=== PATIENT | male | born 1955 | race Two or more races ===

== ENCOUNTER 2018-11-27 08:36 | Emergency (ER) | payer MEDICAID ==
[~2018-11-27] VITALS: Ht 180.3 cm; Wt 71.8 kg
[2018-11-27] MEDS ORDERED: BENZONATATE 100 MG CAPSULE ONE (09:20)
[2018-11-27] MEDS ORDERED: IBUPROFEN 200 MG TABLET ONE (09:20)
--- NOTE | 2018-11-27 09:29 | NUR ---
PT BACK FROM XRAY. PT MEDICATED FOR PAIN AND COUGH.
[2018-11-27] MEDS ORDERED: BENZONATATE 100 MG CAPSULE PO ONE (09:30)
[2018-11-27] MEDS ORDERED: IBUPROFEN 200 MG TABLET PO ONE (09:30)
[2018-11-27] MEDS ORDERED: CEFTRIAXONE PMX 1GM/50ML 50 ML IVPB ONE (11:00)
[2018-11-27] MEDS ORDERED: AZITHROMYCIN 500 MG in SODIUM CHLORIDE 0.9% 250 ML IV ONE (11:00)
[2018-11-27] MEDS ORDERED: SODIUM CHLORIDE FLUSH 10ML SYR IVF ONE (11:00)
[2018-11-27] MEDS ORDERED: CEFTRIAXONE PMX 1GM/50ML 50 ML ONE (11:21)
--- NOTE | 2018-11-27 11:26 | NUR ---
PIV STARTED AND BLOOD DRAWN. BLOOD CULTURES DRAWN X2. IV ANTIBIOTICS STARTED AFTER BLOOD CULTURES WERE DRAWN.
[2018-11-27 11:39] LABS: BASOPHILS # (AUTO) 0.01 x10^3/uL (0-0.1); BASOPHILS % (AUTO) 0 % (0-1); EOSINOPHILS % (AUTO) 0 % (1-7); LYMPHOCYTES # (AUTO) 1.38 x10^3/uL (1-3.4); LYMPHOCYTES % (AUTO) 12 % (22-44); MD NO; MEAN CORPUSCULAR HEMOGLOBIN 30.8 pg (27.5-34.5); MEAN CORPUSCULAR HGB CONC 33.5 g/dL (33.2-36.2); MEAN CORPUSCULAR VOLUME 91.7 fL (81-97); MEAN PLATELET VOLUME 7.1 fL (7.4-10.4); MONOCYTES # (AUTO) 0.91 x10^3/uL (0.2-0.8); MONOCYTES % (AUTO) 8 % (2-9); NEUTROPHILS # (AUTO) 9.21 x10^3/uL (1.8-6.8); NEUTROPHILS % (AUTO) 80 % (42-75); PLATELET COUNT 401 x10^3/uL (130-400); RED BLOOD COUNT 3.71 x10^6/uL (4.38-5.82); RED CELL DISTRIBUTION WIDTH 13.8 % (9.4-14.8)
[2018-11-27 11:44] LABS: ANION GAP 7 mmol/L (5-15); CALCIUM 8.2 mg/dL (8.5-10.1); CHLORIDE 101 mmol/L (98-107)
[2018-11-27 11:48] LABS: ALANINE AMINOTRANSFERASE 27 U/L (12-78); ALKALINE PHOSPHATASE 98 U/L (45-117); BILIRUBIN,TOTAL 0.5 mg/dL (0.2-1.0); CREATININE 0.93 mg/dL (0.7-1.3); TOTAL PROTEIN 7.6 g/dL (6.4-8.2)
--- NOTE | 2018-11-27 12:20 | NUR ---
break coverage: assumed care of pt on behalf of primary RN for lunch break only. pt sleeping with lights dimmed ABX infusion completed
--- NOTE | 2018-11-27 12:38 | NUR ---
break coverage: new ANBX infusion initiated. report to Lawrence ESCOBAR
[2018-11-27 15:04] VITALS: BP 106/84
--- NOTE | 2018-11-27 15:05 | NUR ---
Patient/Caregiver given discharge instructions and they have confirmed that they understand the instructions. Patient ambulatory with steady gait.
== END 2018-11-27 15:06 | disposition home or self-care (01) ==
LOC: EDBD 08:36 → ED 10:30 → EDBD 10:30 → ED 15:06
DX: J15.9 Unspecified bacterial pneumonia (principal); F17.200 Nicotine dependence, unspecified, uncomplicated
CPT/HCPCS: 36415; 71046; 80053; 83605; 84145; 85025; 87040; 93005; 96365; 96367; 99284; J0456; J0696; J7050; 96366

== ENCOUNTER 2019-02-03 09:11 | Emergency (ER) | payer MEDICAID ==
[~2019-02-03] VITALS: Ht 180.3 cm; Wt 68.0 kg
[2019-02-03] MEDS ORDERED: HYDROcodone/APAP 5/325 TABLET PO ONE (10:00)
[2019-02-03] MEDS ORDERED: HYDROcodone/APAP 5/325 TABLET ONE (10:01)
--- NOTE | 2019-02-03 11:17 | NUR ---
AWAITING MEAL TRAY
[2019-02-03 12:22] VITALS: BP 127/76
--- NOTE | 2019-02-03 12:28 | NUR ---
PT RIGHT ARM PLACED IN SLING. Patient/Caregiver given discharge instructions and they have confirmed that they understand the instructions. Patient ambulatory with steady gait.
== END 2019-02-03 12:30 | disposition home or self-care (01) ==
LOC: ED 12:21
DX: G89.11 Acute pain due to trauma (principal); R07.9 Chest pain, unspecified; Z59.0 Homelessness; W18.30XA Fall on same level, unspecified, initial encounter; Y93.89 Activity, other specified; Y92.89 Other specified places as the place of occurrence of the external cause; Y99.8 Other external cause status
CPT/HCPCS: 71046; 99283

== ENCOUNTER 2020-07-22 01:33 | Emergency (ER) | payer MEDICAID ==
[~2020-07-22] VITALS: Ht 182.9 cm; Wt 75.0 kg
--- NOTE | 2020-07-22 02:07 | NUR ---
BIB [facility] FROM [facility] ON L2K. PER LAW ENFORCEMENT, PT SPEAKS ONLY [place] AND MADE CLAIMS THAT HE WAS GOING TO JUMP OFF A BRIDGE. UPON FURTHER ASSESSMENT, PT IS FROM [facility] AND SPEAKS [place], NOT [place]. I USED THE COMPUTER DAIRY FARMWORKER TO ATTEMPT TO TRANSLATE TO [place], HOWEVER THE [facility] DAIRY FARMWORKER SERVICE TOLD ME THEY ARE UNABLE TO PROVIDE A [place] DAIRY FARMWORKER AT THIS TIME. FOR THIS REASON, I AM UNALBE TO ASK ANY ASSESSMENT QUESTIONS WHICH INCLUDES A SUICIDE ASSESSMENT. PT PLACED IN GOWN AND ALL BELONGINGS IN ONE BAG AND PLACED IN LOCKER. SITTER AT DOORWAY FOR FREQUENT CHECKS. WHEN ASKED ASSESSMENT QUESTIONS, PT EITHER DOESN'T ANSWER OR STATES "I'M HUNGRY"
--- NOTE | 2020-07-22 02:32 | NUR ---
URINAL LEFT ON GURNEY BED RAIL FOR URINE SAMPLE. PT MADE AWARE OF ITS PRESENCE.
[2020-07-22 02:34] LABS: BASOPHILS # (AUTO) 0.02 x10^3/uL (0-0.1); BASOPHILS % (AUTO) 0 % (0-1); EOSINOPHILS # (AUTO) 0.25 x10^3/uL (0-0.4); EOSINOPHILS % (AUTO) 3 % (1-7); LYMPHOCYTES # (AUTO) 2.64 x10^3/uL (1-3.4); LYMPHOCYTES % (AUTO) 27 % (22-44); MD NO; MEAN CORPUSCULAR HEMOGLOBIN 31.4 pg (27.5-34.5); MEAN CORPUSCULAR HGB CONC 32.8 g/dL (33.2-36.2); MEAN CORPUSCULAR VOLUME 95.5 fL (81-97); MONOCYTES # (AUTO) 0.61 x10^3/uL (0.2-0.8); MONOCYTES % (AUTO) 6 % (2-9); NEUTROPHILS # (AUTO) 6.11 x10^3/uL (1.8-6.8); NEUTROPHILS % (AUTO) 63 % (42-75); PLATELET COUNT 364 x10^3/uL (130-400); RED BLOOD COUNT 4.72 x10^6/uL (4.38-5.82); RED CELL DISTRIBUTION WIDTH 15.1 % (9.4-14.8)
[2020-07-22 02:46] LABS: ALANINE AMINOTRANSFERASE 35 U/L (12-78); ALBUMIN 3.3 g/dL (3.4-5.0); ANION GAP 5 mmol/L (5-15); CALCIUM 8.7 mg/dL (8.5-10.1); CHLORIDE 106 mmol/L (98-107)
[2020-07-22 02:48] LABS: ALKALINE PHOSPHATASE 79 U/L (45-117); BILIRUBIN,TOTAL 0.3 mg/dL (0.2-1.0); SALICYLATE LEVEL < 1.7 mg/dL (2.8-20.0); TOTAL PROTEIN 6.8 g/dL (6.4-8.2)
--- NOTE | 2020-07-22 03:22 | NUR ---
PT SLEEPING ON GURNEY, RESPIRATIONS EVEN AND UNLABORED. SITTER AT DOORWAY FOR FREQUENT CHECKS.
[2020-07-22 03:34] LABS: AMPHETAMINE SCREEN, URINE Negative (Negative); BARBITURATE SCREEN, URINE Negative (Negative); BENZODIAZEPINE SCREEN, URINE Negative (Negative); CANNABINOID SCREEN, URINE Positive (Negative); COCAINE SCREEN, URINE Negative (Negative); METHADONE SCREEN, URINE Negative (Negative); OPIATE SCREEN, URINE Negative (Negative)
--- NOTE | 2020-07-22 03:57 | NUR ---
PT ASKING (IN [place]) FOR FOOD AND ASKING ME TO TURN THE LIGHTS OFF. PT IS NOW SPEAKING [place] AND STATES HE IS NOT HAVING THOUGHTS ABOUT HURTING HIMSELF. HE DENIES ANY MEDICAL CONDITIONS AND DENIES TAKING ANY MEDICATIONS ON A REGULAR BASIS. DR MAGALLANES NOTIFIED AND A REQUEST WAS PLACED WITH THE SOC FOR TELEPSYCH.
--- NOTE | 2020-07-22 06:33 | NUR ---
SOC called and decided pt should be on a L2K
--- NOTE | 2020-07-22 07:04 | NUR ---
report to greyson pulido
[2020-07-22 08:18] VITALS: BP 152/100
--- NOTE | 2020-07-22 08:19 | NUR ---
BREAKFAST TRAY PROVIDED, PT CONSUMED 100% OF MEAL. VSS THIS AM, PT STATES "MY BRAIN IS NOT RIGHT, I DONT KNOW WHY THEY BROUGHT ME HERE" PT DENIES SI. NAD NOTED, SI PRECAUTIONS IN PLACE
--- NOTE | 2020-07-22 10:00 | NUR ---
PT CONTINUES TO REST ON ELIU CALLAHAN. PT DECLINES NEEDS AT THIS TIME
--- NOTE | 2020-07-22 11:01 | NUR ---
REPORT FROM IKER ESCOBAR. ASSUMING CARE AT THIS TIME. PT RESTING COMFORTABLY, RESP EVEN AND UNLABORED. PT IN DIRECT SIGHT OF SITTER FOR SAFETY.
[2020-07-22] MEDS ORDERED: LORazepam 0.5MG TABLET ONE (11:23)
--- NOTE | 2020-07-22 11:27 | NUR ---
PROFESSOR OF APOLOGETICS PER MAR.
[2020-07-22] MEDS ORDERED: LORazepam 0.5MG TABLET PO ONE (11:30)
--- NOTE | 2020-07-22 12:09 | NUR ---
LUNCH TRAY DELIVERED. PT IN DIRECT SIGHT OF SITTER.
--- NOTE | 2020-07-22 12:55 | NUR ---
REPORT GIVEN TO CHARISSA ESCOBAR AT [facility].
--- NOTE | 2020-07-22 13:12 | NUR ---
PT TAKEN TO [facility] BY JOSE SÁNCHEZ. BELONGINGS RETRIEVED FROM LOCKER AND TAKEN WITH PT.
== END 2020-07-22 13:10 ==
LOC: MERGE 01:33 → ED 07:51
DX: F33.9 Major depressive disorder, recurrent, unspecified (principal); R45.851 Suicidal ideations
CPT/HCPCS: 36415; 80053; 80307; 85025; 99285

== ENCOUNTER 2020-07-22 12:39 | Inpatient (IN) | payer MEDICAID ==
[~2020-07-22] VITALS: Ht 182.9 cm; Wt 66.8 kg
[2020-07-22] MEDS ORDERED: ACETAMINOPHEN 325 MG TABLET PO PRN (13:00)
[2020-07-22] MEDS ORDERED: ONDANSETRON ODT 4 MG PO PRN (13:00)
[2020-07-22] MEDS ORDERED: POLYETHYLENE GLYCOL 17 GM PACKET PO PRN (13:00)
[2020-07-22 13:45] VITALS: BP 133/82
[2020-07-22] MEDS ORDERED: PLEASE ENTER HEIGHT AND WEIGHT MC SCH (14:00)
[2020-07-22 14:18] LABS: FREE T4 (FREE THYROXINE) 1.07 ng/dL (0.76-1.46)
[2020-07-22 19:28] LABS: MICROSCOPIC NOT IND
[2020-07-22 19:36] VITALS: BP 134/90
[2020-07-23 07:38] LABS: CHOL/HDL RATIO 2.4; LDL/HDL RATIO 1.2 (0.5-3.0)
[2020-07-23 07:47] VITALS: BP 129/88
[2020-07-23] MEDS: SENNA/DOCUSATE TABLET PO SCH (10:59)
[2020-07-23] MEDS: ACAMPROSATE 333 MG TABLET.DR PO SCH ×2 (15:01→21:00)
[2020-07-23 20:00] VITALS: BP 130/80
[2020-07-24 07:43] VITALS: BP 160/68
[2020-07-24] MEDS: ACAMPROSATE 333 MG TABLET.DR PO SCH ×3 (09:00→20:13)
[2020-07-24] MEDS: SENNA/DOCUSATE TABLET PO SCH (09:00)
[2020-07-24] MEDS: DULOXETINE 30 MG CAPSULE.DR PO SCH (13:08)
[2020-07-24] MEDS: GABAPENTIN 300 MG CAPSULE PO SCH ×3 (13:08→20:13)
[2020-07-24 19:20] VITALS: BP 122/77
[2020-07-25 07:25] VITALS: BP 109/73
[2020-07-25] MEDS: DULOXETINE 30 MG CAPSULE.DR PO SCH (08:25)
[2020-07-25] MEDS: GABAPENTIN 300 MG CAPSULE PO SCH ×3 (08:25→20:18)
[2020-07-25] MEDS: ACAMPROSATE 333 MG TABLET.DR PO SCH ×3 (08:25→20:18)
[2020-07-25] MEDS: SENNA/DOCUSATE TABLET PO SCH (08:25)
[2020-07-25 19:12] VITALS: BP 148/76
[2020-07-26 07:34] VITALS: BP 140/85
[2020-07-26] MEDS: DULOXETINE 30 MG CAPSULE.DR PO SCH (08:17)
[2020-07-26] MEDS: SENNA/DOCUSATE TABLET PO SCH (08:17)
[2020-07-26] MEDS: ACAMPROSATE 333 MG TABLET.DR PO SCH ×3 (08:17→20:13)
[2020-07-26] MEDS: GABAPENTIN 300 MG CAPSULE PO SCH ×3 (08:18→20:13)
[2020-07-26 19:39] VITALS: BP 135/82
[2020-07-27 07:00] VITALS: BP 121/80
[2020-07-27] MEDS: SENNA/DOCUSATE TABLET PO SCH (09:00)
[2020-07-27] MEDS: DULOXETINE 30 MG CAPSULE.DR PO SCH (09:03)
[2020-07-27] MEDS: GABAPENTIN 300 MG CAPSULE PO SCH ×3 (09:03→20:19)
[2020-07-27] MEDS: ACAMPROSATE 333 MG TABLET.DR PO SCH ×3 (09:04→20:19)
[2020-07-27] MEDS ORDERED: ACAM333T7 PO (14:52)
[2020-07-27] MEDS ORDERED: GABA300C PO (14:52)
[2020-07-27] MEDS ORDERED: DULO30CA2 PO (14:52)
[2020-07-27 19:56] VITALS: BP 131/83
[2020-07-28 07:00] VITALS: BP 133/83
[2020-07-28] MEDS: DULOXETINE 30 MG CAPSULE.DR PO SCH ×2 (08:26→08:31)
[2020-07-28] MEDS: GABAPENTIN 300 MG CAPSULE PO SCH ×2 (08:27→08:31)
[2020-07-28] MEDS: ACAMPROSATE 333 MG TABLET.DR PO SCH ×3 (08:27→08:32)
[2020-07-28] MEDS: SENNA/DOCUSATE TABLET PO SCH (08:31)
== END 2020-07-28 11:00 | disposition home or self-care (01) | DRG 885 ==
LOC: 3E 13:25
PROVIDERS: ADMIT Psychiatry & Neurology Psychosomatic Medicine; ATTEND Psychiatry & Neurology Psychosomatic Medicine
DX: F33.2 Major depressive disorder, recurrent severe without psychotic features (principal); R45.851 Suicidal ideations; F10.20 Alcohol dependence, uncomplicated; F12.90 Cannabis use, unspecified, uncomplicated; G89.29 Other chronic pain; Z59.0 Homelessness; Z79.899 Other long term (current) drug therapy
CPT/HCPCS: 36415; 71045; 80061; 81003; 84439; 84443; 93005

== ENCOUNTER 2020-08-01 13:49 | Emergency (ER) | payer MEDICAID ==
[~2020-08-01] VITALS: Ht 175.3 cm; Wt 71.6 kg
[~2020-08-01 13:49] MED LIST: ACAM333T7 PO; DULO30CA2 PO; GABA300C PO
[2020-08-01 13:50] VITALS: BP 145/88
--- NOTE | 2020-08-01 15:15 | NUR ---
PT AMBULATED TO ROOM WITH STEADILY GAIT.
[2020-08-01] MEDS ORDERED: BACITRACIN ZINC OINT 500U/GM, 0.9 GM ONE (17:07)
== END 2020-08-01 17:50 | disposition home or self-care (01) ==
LOC: ED 17:00
DX: K04.7 Periapical abscess without sinus (principal); K02.9 Dental caries, unspecified
CPT/HCPCS: 99283

== ENCOUNTER 2020-08-18 10:47 | Emergency (ER) | payer MEDICAID ==
[~2020-08-18] VITALS: Ht 172.7 cm; Wt 75.0 kg
[2020-08-18] MEDS ORDERED: SODIUM CHLORIDE FLUSH 10ML SYR IVF ONE (11:30)
[2020-08-18 11:57] LABS: BASOPHILS # (AUTO) 0.04 x10^3/uL (0-0.1); BASOPHILS % (AUTO) 1 % (0-1); EOSINOPHILS # (AUTO) 0.19 x10^3/uL (0-0.4); EOSINOPHILS % (AUTO) 2 % (1-7); LYMPHOCYTES # (AUTO) 2.93 x10^3/uL (1-3.4); LYMPHOCYTES % (AUTO) 35 % (22-44); MD NO; MEAN CORPUSCULAR HEMOGLOBIN 30.9 pg (27.5-34.5); MEAN CORPUSCULAR HGB CONC 32.9 g/dL (33.2-36.2); MEAN CORPUSCULAR VOLUME 93.9 fL (81-97); MONOCYTES % (AUTO) 7 % (2-9); NEUTROPHILS # (AUTO) 4.58 x10^3/uL (1.8-6.8); NEUTROPHILS % (AUTO) 55 % (42-75); PLATELET COUNT 309 x10^3/uL (130-400); RED BLOOD COUNT 4.61 x10^6/uL (4.38-5.82); RED CELL DISTRIBUTION WIDTH 14.1 % (9.4-14.8)
[2020-08-18 12:07] LABS: ALANINE AMINOTRANSFERASE 49 U/L (12-78); ALBUMIN 3.7 g/dL (3.4-5.0); ANION GAP 8 mmol/L (5-15); CALCIUM 8.9 mg/dL (8.5-10.1); CHLORIDE 108 mmol/L (98-107)
[2020-08-18 12:10] LABS: ALKALINE PHOSPHATASE 87 U/L (45-117); BILIRUBIN,TOTAL 0.3 mg/dL (0.2-1.0); CREATININE 1.31 mg/dL (0.7-1.3); TOTAL PROTEIN 7.3 g/dL (6.4-8.2)
--- NOTE | 2020-08-18 12:22 | NUR ---
COOK JELLY: PT TO ROOM FROM ABUNDIO MONTERROSO
--- NOTE | 2020-08-18 13:01 | NUR ---
PATIENT WANTS TO TALK TO RN/STATES LEGS HURT ALSO DOESNT WANT TO GO TO CT TWICE
[2020-08-18 13:30] LABS: MICROSCOPIC NOT IND
[2020-08-18] MEDS ORDERED: ACETAMINOPHEN 500 MG TABLET PO ONE (13:30)
[2020-08-18] MEDS ORDERED: ACETAMINOPHEN 500 MG TABLET ONE (13:33)
--- NOTE | 2020-08-18 14:47 | NUR ---
BREAK RN: PT FULLY DRESSED, STATES "I WANT TO LEAVE I'M HUNGRY AND THIRSTY AND I WANT DON'T WANT TO STAY". PT EDUCATED ON ED PROCESS. PT PACING AROUND ROOM W/ A STEADY GAIT STATING HE WANTS TO LEAVE. PIV REMOVED. PT ADVISED TO WAIT FOR RESULTS. PT SITTING ON CHAIR IN ROOM, STATES "WAIT BY THE DOOR AND I'LL TELL YOU IF I WANT TO LEAVE".
[2020-08-18 15:02] VITALS: BP 132/78
--- NOTE | 2020-08-18 15:04 | NUR ---
PATIENT DISCHARGE REVIEWED
[2020-08-18] MEDS ORDERED: OMNIPAQUE 350 MG/ML, 100ML BOTTLE ONE (17:00)
== END 2020-08-18 15:40 | disposition home or self-care (01) ==
LOC: ED 11:57
DX: K59.00 Constipation, unspecified (principal); R10.32 Left lower quadrant pain; R19.7 Diarrhea, unspecified; R11.0 Nausea; F17.200 Nicotine dependence, unspecified, uncomplicated
CPT/HCPCS: 36415; 74177; 80053; 81003; 83690; 85025; 99285; Q9967